=== PATIENT | male | born 1970 | race Two or more races ===

== ENCOUNTER 2019-01-14 19:16 | Emergency (ER) | payer SELFPAY ==
[~2019-01-14] VITALS: Ht 172.7 cm; Wt 79.8 kg
[2019-01-14 19:59] VITALS: BP 124/77
[2019-01-14] MEDS ORDERED: KETOROLAC TROMETH 60MG/2ML VIAL IM ONE (21:15)
[2019-01-14] MEDS ORDERED: COLCHICINE 0.6 MG CAP PO ONE (22:45)
== END 2019-01-14 22:50 | disposition home or self-care (01) ==
LOC: ER 19:26
DX: M10.072 Idiopathic gout, left ankle and foot (principal)
CPT/HCPCS: 36415 ×2; 73630 ×2; 84550 ×2; 96372 ×2; 99284; J1885 ×2